=== PATIENT | female | born 1940 | race African-American/Black ===

== ENCOUNTER 2018-04-12 08:40 | Emergency (ER) | payer MEDICARE ==
[2018-04-12] MEDS ORDERED: HYDROcodone/Acetaminophen 5/325 mg Tablet ONE (09:48)
== END 2018-04-12 09:59 | disposition home or self-care (01) ==
LOC: EDBD 08:40 → ERS 08:40
DX: M10.9 Gout, unspecified (principal); I10 Essential (primary) hypertension; Z79.899 Other long term (current) drug therapy
CPT/HCPCS: 99283

== ENCOUNTER 2018-04-14 20:29 | Emergency (ER) | payer MEDICARE ==
[2018-04-14] MEDS ORDERED: Famotidine 20 MG TAB ONE (20:51)
[2018-04-14] MEDS ORDERED: Dexamethasone 4 mg/ml Vial ONE (20:51)
[2018-04-14] MEDS ORDERED: diphenhydrAMINE 25 MG CAP ONE (20:51)
[2018-04-14] MEDS ORDERED: diphenhydrAMINE 25 MG CAP PO SCH (21:00)
== END 2018-04-14 21:48 | disposition home or self-care (01) ==
LOC: ERS 20:29
DX: T78.40XA Allergy, unspecified, initial encounter (principal); I10 Essential (primary) hypertension; M10.9 Gout, unspecified; Z79.899 Other long term (current) drug therapy
CPT/HCPCS: 99283; J1100

== ENCOUNTER 2018-10-22 09:29 | Emergency (ER) | payer MEDICARE, OTHER ==
[2018-10-22] MEDS ORDERED: HYDROcodone/Acetaminophen 5/325 mg Tablet ONE (11:04)
== END 2018-10-22 10:49 | disposition home or self-care (01) ==
LOC: ERS 09:29 → EDBD 09:29 → ERS 10:49
DX: M10.9 Gout, unspecified (principal); I10 Essential (primary) hypertension; Z79.899 Other long term (current) drug therapy
CPT/HCPCS: 99283

== ENCOUNTER 2018-11-05 21:06 | Observation (INO) | payer MEDICARE ==
[2018-11-05 21:33] LABS: #Basophils 0.1 thou/uL (0.0-0.2); #Eosinphils 0.3 thou/uL (0.0-0.7); #Lymphocytes 3.4 thou/uL (1.20-3.40); #Monocytes 0.9 thou/uL (0.11-0.59); #Neutrophils 4.4 thou/uL (1.40-6.50); %Basophils 1.6 % (0.0-1.0); %Lymphocytes 37.1 % (21.0-51.0); %Monocytes 10.2 % (0.0-10.0); %Neutrophils 48.2 % (42.0-75.0); Hemoglobin 11.7 g/dL (12.0-16.0); Mean Corpuscular HGB CONC 33.9 g/dL (32.0-36.0); Mean Corpuscular Hemoglobin 31.5 pg (27.0-31.0); Mean Corpuscular Volume 92.9 fL (78.0-98.0); Mean Platelet Volume 7.2 fL (7.4-10.4); Platelet Count 231 thou/uL (130-400); RBC Distribution Width 12.3 % (11.5-14.5); Red Blood Cell (RBC) Count 3.71 mill/uL (4.20-5.40)
[2018-11-05 22:01] LABS: ALT (SGPT) 14 U/L (8-55); AST (SGOT) 18 U/L (5-34); Albumin 4.5 g/dL (3.4-4.8); Alkaline Phosphatase 61 U/L (40-150); Anion Gap 13 mmol/L (10-20); BUN (Urea Nitrogen) 30 mg/dL (9.8-20.1); Bilirubin, Total 0.2 mg/dL (0.2-1.2); Calc. Creatinine Clearance 0 mL/min (70-130); Carbon Dioxide 24 mmol/L (23-31); Chloride 106 mmol/L (98-107); Estimated GFR-MDRD 42; Glucose 93 mg/dL (83-110); Potassium 3.9 mmol/L (3.5-5.1); Protein, Total 7.5 g/dL (6.0-8.3); Sodium 139 mmol/L (136-145)
--- NOTE | 2018-11-05 22:48 | CT ---
CT BRAIN: 11/05/18 HISTORY: Dizziness that stated at [address] images of the brain obtained. There is diffuse cortical atrophy. 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 Small area of hypodensity seen along the left anterior limb of the internal capsule most compatible w ith an old small area of stroke. No acute intracranial masses seen. No evidence of intracranial hemor rhages seen. IMPRESSION: No acute intracranial abnormality seen. POS: [facility]
--- NOTE | 2018-11-05 23:13 | RAD ---
AP VIEW CHEST 11/05/18 HISTORY: Dizziness. Chest pain. AP view chest is obtained on 11/05/18. Bilateral rotator cuff surgical screws in place. The lungs are well aerated. No evidence of active in trathoracic disease seen. No evidence of effusions, pneumonia or pneumothorax seen. IMPRESSION: Unremarkable AP view chest. POS: [facility]
[2018-11-06] MEDS ORDERED: Acetaminophen 325 MG TAB PO PRN (01:14)
[2018-11-06] MEDS ORDERED: Ondansetron PF 4 MG/2 ML Vial IVP PRN (01:14)
[2018-11-06] MEDS ORDERED: Ondansetron ODT 4 MG TAB SL PRN (01:14)
[2018-11-06 01:57] VITALS: BMI 40.4
[2018-11-06] MEDS ORDERED: Senokot S 8.6-50 MG TAB PO PRN (07:39)
[2018-11-06] MEDS ORDERED: Bisacodyl 10 MG SUPP PR PRN (07:39)
[2018-11-06 07:58] LABS: Anion Gap 13 mmol/L (10-20); BUN (Urea Nitrogen) 24 mg/dL (9.8-20.1); Calc. Creatinine Clearance 56 mL/min (70-130); Calcium 9.5 mg/dL (7.8-10.44); Carbon Dioxide 21 mmol/L (23-31); Chloride 109 mmol/L (98-107); Estimated GFR-MDRD 58; Glucose 97 mg/dL (83-110); Potassium 3.7 mmol/L (3.5-5.1); Sodium 139 mmol/L (136-145)
[2018-11-06] MEDS: Enoxaparin Sodium 40 MG/0.4 ML SYRINGE SC SCH (08:29)
[2018-11-06] MEDS: Bisoprolol Fumarate/HCTZ 5 mg/6.25 mg Tablet PO SCH (08:29)
--- NOTE | 2018-11-06 08:48 | HP ---
CHIEF COMPLAINT: Lightheadedness and dizziness. HISTORY OF PRESENT ILLNESS: A 78-year-old female with past medical history only significant for hypertension, gout, and decreased hearing ability for which she uses hearing aid, who presented to the emergency room last night with acute onset of lightheadedness and dizziness associated with feeling of unsteady. Symptoms initially started while the patient stood up, but resolved on sitting. She, however, had multiple other episodes even while she was sitting down or lying down, hence presentation to the emergency room. In one occasion, the patient reported chest pressure, which also resolved spontaneously. There was no history of shortness of breath, headache, nausea, vomiting, diaphoresis, or fall. Also, the patient denied change in bowel habits, change in medication, dysuria or hematuria, or focal weakness. In the emergency room, the patient was evaluated with EKG, troponin, and CT scan, which were all unremarkable. She, however, was admitted for further evaluation of chest pain and lightheadedness. Currently, the patient denied lightheadedness or dizziness. Though, she reported an episode last night when she ambulated to go to the restroom. PAST MEDICAL HISTORY: 1. Cataract. 2. Hypertension. 3. Osteoarthritis. 4. Gout. 5. Hard of hearing and uses hearing aid. PAST SURGICAL HISTORY: 1. Bilateral rotator cuff repair. 2. section. 3. Tubal ligation. FAMILY HISTORY: Significant for diabetes in 2 sisters and a son. Father may have had heart attack. SOCIAL HISTORY: The patient lives alone. She, however, is able to do things on her own. She denied smoking, alcohol, or recreational drug use. ALLERGIES: SULFA. HOME MEDICATIONS: 1. Bisoprolol/hydrochlorothiazide 5/6.25 mg p.o. daily. 2. Colchicine as needed. 3. Eye drops. REVIEW OF SYSTEMS: Twelve-point review of system performed was negative other than pertinent positives and negatives included in the history of present illness. PHYSICAL EXAMINATION: VITAL SIGNS: On presentation to the emergency room, the patient had blood pressure of 160/81, pulse of 81, respiratory rate of 20, temperature of 98.2, and SpO2 of 99 on room air. Currently vitals show blood pressure of 157/74, pulse of 78, respiratory rate of 18, SpO2 of 99 on room air, and temperature of 98.2. GENERAL: Showed ill-looking elderly female, in no obvious distress. Afebrile, anicteric, acyanotic. HEENT: Normocephalic, atraumatic. Pupils are equal and reacting to light. Oral mucosa is moist. NECK: Supple, nontender with no obvious mass. No JVD appreciated. RESPIRATORY: Good air entry bilateral with no obvious crackle or rhonchi or use of accessory muscles. CARDIOVASCULAR: Regular rhythm and rate with normal heart sounds 1 and 2. No murmur was appreciated. No obvious edema appreciated. GASTROINTESTINAL: Abdomen is obese, soft, nontender, and nondistended with normal bowel sounds. EXTREMITIES: Grossly normal looking, atraumatic with no edema, erythema, or cyanosis. Distal pulses are palpable. SKIN: Grossly normal and appropriate for age with no rash or bruises. NEUROLOGIC: Conscious and alert, oriented x3 with appropriate mental status. Cranial nerves II through XII are intact. The patient moves all extremities. The patient was able to ambulate with normal gait and there was no dizziness at this time. DIAGNOSTIC DATA: CMP showed sodium 139, potassium 3.9, chloride 106, CO2 of 24 , BUN 30, creatinine 1.45, glucose 93, calcium 10.0, total bilirubin 0.2, AST 18 ALT 14, alkaline phosphatase 61, total protein 7.5, and albumin 4.5. Serial troponin has been unremarkable with level less than 0.010. BNP is 26.8. CBC showed WBC count of 9.0, hemoglobin 11.7, and platelet of 231. EKG showed normal sinus rhythm with rate of 85. No ischemic changes were noted. Chest x-ray showed well-aerated lungs with no evidence of acute intrathoracic pathology. CT scan of the brain showed no acute intracranial abnormality. However, small area of hypodensity seen along the left anterior limb of the internal capsule was seen and this is thought to be most compatible with an old small area of stroke. ASSESSMENT AND PLAN: 1. Acute onset of lightheadedness and dizziness: This patient with hearing defect (hard of hearing), who uses hearing aid and is at increased risk for vestibular disturbance. Symptoms were said to be episodic and has spontaneously resolved at this time. There was no associated nystagmus as per ER note. Acute cerebrovascular accident is unlikely since the symptoms has resolved at this time but Transient ischemic attack is a possibility. However, this seems most likely to be benign positional vertigo. The patient resolve spontaneously. We, however, check orthostatic vitals to rule out orthostatic dizziness. 2. Transient chest pain: The patient is currently chest pain free. Serial troponin and EKG were unremarkable. No further evaluation is indicated at this time. 3. Chronic kidney disease with possible reversible component: The patient had a creatinine of 1.4, which is relatively higher than baseline. The patient had a creatinine of 1.1 in November 2017. We will get repeat BMP. 4. Hypertension: We will check orthostatic vitals and this patient is not orthostatic. We will restart usual home medications of bisoprolol and low-dose hydrochlorothiazide. 5. Gout: No acute issues. We will start colchicine if needed. 6. Diet: The patient will be started on heart healthy diet. 7. Deep vein thrombosis prophylaxis with Lovenox. 8. Ethics: Full code. Daughter is the surrogate decision maker. 9. Disposition: We will monitor the patient closely and if she remains stable without another episode of vertigo and lightheadedness, we could consider discharging the patient. Job ID: [id number] [facility]
[2018-11-07] MEDS: Bisoprolol Fumarate/HCTZ 5 mg/6.25 mg Tablet PO SCH (08:15)
[2018-11-07] MEDS: Enoxaparin Sodium 40 MG/0.4 ML SYRINGE SC SCH (08:16)
[2018-11-07 09:08] LABS: Cardiac Risk 4.6 (Less than 4.5)
[2018-11-07 11:54] LABS: Bilirubin Negative (Negative); Blood, Urine Negative (Negative); Clarity CLOUDY (Clear); Glucose, Urine (Dipstick) Negative (Negative); Leukocyte Moderate (Negative); Nitrite Positive (Negative); Protein, Urine (Dipstick) Negative (Neg-Trace); Specific Gravity, Urine 1.012 (1.002-1.036); Urobilinogen 0.2 mg/dL (0.2-1.0)
[2018-11-07 11:55] VITALS: BP 133/66
[2018-11-07 11:59] LABS: Bacteria/HPF 2+ HPF (None Seen); Hyaline Casts/LPF 0-3 HYALINE CAST LPF (0-3 Hyaline); Pathc Cast-AUWi Flag 0.14 (0-2.49); RBC/HPF 0-3 HPF (0-3); WBC/HPF 21-50 HPF (0-3)
[2018-11-07] MEDS ORDERED: Sodium Chloride 0.9% 10 ML ONE (13:31)
[2018-11-07 14:04] VITALS: TEMP 97.8
--- NOTE | 2018-11-08 04:07 | DIS ---
DATE OF ADMISSION: 11/06/2018 DATE OF DISCHARGE: 11/07/2018 CONDITION AT THE TIME OF DISCHARGE: Stable and improved. PRIMARY CARE PHYSICIAN: Dirk Reynoso MD DISCHARGE DIAGNOSES: 1. Dizziness, likely secondary to urinary tract infection. 2. History of hypertension, congestive heart failure, dyslipidemia, and gout. DISCHARGE MEDICATIONS: Discharge medication remains the same as admission medication, which includes; 1. Bisoprolol/hydrochlorothiazide 5/6.25 mg daily. 2. Colchicine as needed. New medication: Levofloxacin 500 mg p.o. daily for 5 days. HISTORY OF PRESENTING ILLNESS: Ms. Hogan is a very pleasant 78-year-old female with past medical history of hypertension and dyslipidemia, who presented to the emergency room with complaints of dizziness. She feels that she has some fullness in the inner ear. Upon presentation, her vital signs were stable and labs were unremarkable. Cardiac enzymes were normal. EKG and chest x-ray were within normal limit. CT scan of the brain was unremarkable. She was admitted for further workup and monitoring. Please see admission history and physical for further details. HOSPITAL COURSE: Orthostatics were negative. Serial cardiac enzymes were negative. Urine was checked and came back positive, so she was started on IV Levaquin and was discharged on oral Levaquin. Urine culture results are pending at this time. She is being referred to outpatient dizzy and balance center. She is also being referred to get outpatient stress test and follow up the results with primary care physician. Her last stress test was 10 years ago. At this time, the likelihood of acute coronary syndrome is negligible. She is currently asymptomatic and her dizziness has almost resolved. She was seen and examined prior to discharge. PHYSICAL EXAMINATION: VITAL SIGNS: This morning vital signs; blood pressure 148/81 with a pulse of 81, no acute distress. CHEST: Clear to auscultation bilaterally. HEART: Rate and rhythm, regular. DISCHARGE PLAN: Discharge plan was discussed with the patient and her daughter in the room and they verbalized understanding. Job ID: [id number]
== END 2018-11-07 15:21 | disposition home or self-care (01) ==
LOC: ERS 21:06 → 2SW 11-06 00:11
PROVIDERS: ADMIT Hospitalist; ATTEND Hospitalist
DX: R42 Dizziness and giddiness (principal); I13.0 Hypertensive heart and chronic kidney disease with heart failure and stage 1 through stage 4 chronic kidney disease, or unspecified chronic kidney disease; N18.9 Chronic kidney disease, unspecified; I50.9 Heart failure, unspecified; E78.5 Hyperlipidemia, unspecified; M10.9 Gout, unspecified; H26.9 Unspecified cataract; M19.90 Unspecified osteoarthritis, unspecified site; H91.90 Unspecified hearing loss, unspecified ear; Z97.4 Presence of external hearing-aid; Z98.51 Tubal ligation status; Z88.2 Allergy status to sulfonamides; Z79.2 Long term (current) use of antibiotics; Z79.899 Other long term (current) drug therapy; Z98.890 Other specified postprocedural states
CPT/HCPCS: 70450; 71045; 80048; 80053; 80061; 81001; 83880; 84443; 84484 ×3; 85025; 93005; 96365; 96372 ×2; 97116; 97139; 99285; G0378 ×2; 36415; 96360; J1650; J1956

== ENCOUNTER 2019-01-10 07:32 | Emergency (ER) | payer MEDICARE ==
--- NOTE | 2019-01-10 08:26 | RAD ---
XR Lumbar Spine 2 Or 3 View: 01/10/2019 8:01 AM CLINICAL INDICATION: Pain COMPARISON: None. FINDINGS: Fracture:No fracture. Arthropathy:There is moderate multilevel degenerative change throughout the lumbar spine including en dplate degeneration and multilevel facet osteoarthritis. There is grade 1 spondylolisthesis at L3-4 and grade 1-2 spondylolisthesis at L4-5. Left convexity curvature of lumbar spine is present. Incidental findings:Focal calcification overlies the left hemipelvis, which could relate to calcified fibroid although is nonspecific. Vascular calcification. IMPRESSION: 1. Multilevel degenerative change of lumbar spine with multilevel listheses as above. 2. Pelvic calcification as above.
== END 2019-01-10 08:47 | disposition home or self-care (01) ==
LOC: ERS 07:32
DX: M54.41 Lumbago with sciatica, right side (principal); I10 Essential (primary) hypertension; M10.9 Gout, unspecified
CPT/HCPCS: 72100

== ENCOUNTER 2019-01-21 18:22 | Emergency (ER) | payer MEDICARE, SELFPAY ==
[2019-01-21] MEDS ORDERED: HYDROcodone/Acetaminophen 10/325 mg Tablet ONE (19:25)
[2019-01-21] MEDS ORDERED: Cyclobenzaprine 10 MG TAB ONE (19:26)
== END 2019-01-21 19:31 | disposition home or self-care (01) ==
LOC: ERS 18:22
DX: M54.5 Low back pain (principal); M10.9 Gout, unspecified; I10 Essential (primary) hypertension; K21.9 Gastro-esophageal reflux disease without esophagitis; Z79.899 Other long term (current) drug therapy; Z79.891 Long term (current) use of opiate analgesic
CPT/HCPCS: 99283

== ENCOUNTER 2019-06-26 19:54 | Emergency (ER) | payer MEDICARE ==
--- NOTE | 2019-06-26 20:21 | RAD ---
EXAM: Chest 2 views: HISTORY: Cough and congestion COMPARISON: 10/09/15 FINDINGS: There is a normal-sized cardiomediastinal silhouette. There is no evidence of consolidation, mass, or pleural effusion. Degenerative changes are seen in the spine. Postsurgical changes are seen in the shoulders. IMPRESSION: No evidence of acute cardiopulmonary disease
== END 2019-06-26 21:30 | disposition home or self-care (01) ==
LOC: ERS 19:54
DX: R09.81 Nasal congestion (principal); I10 Essential (primary) hypertension; M10.9 Gout, unspecified; K21.9 Gastro-esophageal reflux disease without esophagitis; Z79.899 Other long term (current) drug therapy; Z79.82 Long term (current) use of aspirin
CPT/HCPCS: 71046; 87804

== ENCOUNTER 2020-11-09 23:52 | Emergency (ER) | payer MEDICARE ==
[2020-11-10 01:00] LABS: Bacteria/HPF None Seen HPF (None Seen); Bilirubin Negative (Negative); Blood, Urine Negative (Negative); Clarity Clear (Clear); Glucose, Urine (Dipstick) Normal (Negative); Ketone, Urine Negative (Negative); Leukocyte 75 Leu/uL (Negative); Nitrite Negative (Negative); Protein, Urine (Dipstick) 20 mg/dL (Neg-Trace); RBC/HPF 0-3 HPF (0-3); Specific Gravity, Urine 1.018 (1.002-1.036); Squamous Epithelial 21-50 HPF (0-3); Urobilinogen Normal mg/dL (Less than 2); WBC/HPF 0-3 HPF (0-3); pH, Urine 5.5 (5.0-9.0)
[2020-11-10 01:09] LABS: #Basophils 0.1 thou/uL (0.0-0.2); #Eosinphils 0.1 thou/uL (0.0-0.7); #Lymphocytes 1.6 thou/uL (1.20-3.40); #Monocytes 0.8 thou/uL (0.11-0.59); #Neutrophils 4.4 thou/uL (1.40-6.50); %Eosinophils 1.7 % (0.0-10.0); %Lymphocytes 23.1 % (21.0-51.0); %Monocytes 11.1 % (0.0-10.0); %Neutrophils 63.1 % (42.0-75.0); Hemoglobin 11.6 g/dL (12.0-16.0); Mean Corpuscular HGB CONC 37.6 g/dL (32.0-36.0); Mean Corpuscular Hemoglobin 35.9 pg (27.0-31.0); Mean Corpuscular Volume 95.4 fL (78.0-98.0); Mean Platelet Volume 7.7 fL (7.4-10.4); Platelet Count 261 thou/uL (130-400); RBC Distribution Width 12.9 % (11.5-14.5); Red Blood Cell (RBC) Count 3.25 mill/uL (4.20-5.40)
[2020-11-10 01:24] LABS: ALT (SGPT) 14 U/L (8-55); AST (SGOT) 18 U/L (5-34); Albumin 4.1 g/dL (3.4-4.8); Alkaline Phosphatase 52 U/L (40-110); Anion Gap 17 mmol/L (10-20); BUN (Urea Nitrogen) 21 mg/dL (9.8-20.1); Bilirubin, Total 0.3 mg/dL (0.2-1.2); Calc. Creatinine Clearance 0 mL/min (70-130); Calcium 9.6 mg/dL (7.8-10.44); Carbon Dioxide 19 mmol/L (23-31); Chloride 103 mmol/L (98-107); Globulin 3.1 g/dL (2.4-3.5); Glucose 102 mg/dL (83-110); Potassium 3.7 mmol/L (3.5-5.1); Protein, Total 7.2 g/dL (5.8-8.1); Sodium 135 mmol/L (136-145)
== END 2020-11-10 01:48 | disposition home or self-care (01) ==
LOC: ERS 23:52
DX: R50.9 Fever, unspecified (principal); Z20.822 Contact with and (suspected) exposure to COVID-19; I10 Essential (primary) hypertension; K21.9 Gastro-esophageal reflux disease without esophagitis; M10.9 Gout, unspecified
CPT/HCPCS: 36415; 71045; 80053; 81003; 81015; 84484; 85025; 87086; 93005

== ENCOUNTER 2021-02-02 08:28 | Emergency (ER) | payer MEDICARE, OTHER ==
[2021-02-02 09:10] LABS: #Basophils 0.1 thou/uL (0.0-0.2); #Eosinphils 0.2 thou/uL (0.0-0.7); #Lymphocytes 1.9 thou/uL (1.20-3.40); #Monocytes 0.6 thou/uL (0.11-0.59); #Neutrophils 4.1 thou/uL (1.40-6.50); %Basophils 1.9 % (0.0-1.0); %Eosinophils 3.4 % (0.0-10.0); %Lymphocytes 27.1 % (21.0-51.0); %Monocytes 8.6 % (0.0-10.0); Hemoglobin 12.9 g/dL (12.0-16.0); Mean Corpuscular HGB CONC 34.8 g/dL (32.0-36.0); Mean Corpuscular Hemoglobin 33.1 pg (27.0-31.0); Mean Corpuscular Volume 95.3 fL (78.0-98.0); Mean Platelet Volume 7.4 fL (7.4-10.4); Platelet Count 229 thou/uL (130-400); RBC Distribution Width 12.4 % (11.5-14.5)
[2021-02-02 09:27] LABS: ALT (SGPT) 14 U/L (8-55); AST (SGOT) 18 U/L (5-34); Albumin 4.3 g/dL (3.4-4.8); Alkaline Phosphatase 57 U/L (40-110); Anion Gap 13 mmol/L (10-20); BUN (Urea Nitrogen) 21 mg/dL (9.8-20.1); Bilirubin, Total 0.5 mg/dL (0.2-1.2); Calc. Creatinine Clearance 0 mL/min (70-130); Calcium 10.4 mg/dL (7.8-10.44); Carbon Dioxide 24 mmol/L (23-31); Chloride 106 mmol/L (98-107); Globulin 3.4 g/dL (2.4-3.5); Glucose 127 mg/dL (83-110); Potassium 3.9 mmol/L (3.5-5.1); Protein, Total 7.7 g/dL (5.8-8.1); Sodium 139 mmol/L (136-145)
== END 2021-02-02 10:50 | disposition home or self-care (01) ==
LOC: ERS 08:28
DX: M25.512 Pain in left shoulder (principal); Z79.899 Other long term (current) drug therapy; Z79.82 Long term (current) use of aspirin; I10 Essential (primary) hypertension; M10.9 Gout, unspecified; K21.9 Gastro-esophageal reflux disease without esophagitis
CPT/HCPCS: 72125; 80053; 84484; 85025; 93005

== ENCOUNTER 2021-06-04 20:05 | Observation (INO) | payer MEDICARE ==
[2021-06-04 20:32] LABS: #Basophils 0.1 thou/uL (0.0-0.2); #Eosinphils 0.4 thou/uL (0.0-0.7); #Lymphocytes 3.3 thou/uL (1.20-3.40); #Monocytes 0.9 thou/uL (0.11-0.59); #Neutrophils 3.9 thou/uL (1.40-6.50); %Basophils 0.9 % (0.0-1.0); %Eosinophils 4.5 % (0.0-10.0); %Lymphocytes 38.4 % (21.0-51.0); %Monocytes 10.4 % (0.0-10.0); %Neutrophils 45.9 % (42.0-75.0); Hemoglobin 11.8 g/dL (12.0-16.0); Mean Corpuscular HGB CONC 34.8 g/dL (32.0-36.0); Mean Corpuscular Hemoglobin 33.2 pg (27.0-31.0); Mean Corpuscular Volume 95.4 fL (78.0-98.0); Mean Platelet Volume 7.5 fL (7.4-10.4); Platelet Count 217 thou/uL (130-400); RBC Distribution Width 12.5 % (11.5-14.5); Red Blood Cell (RBC) Count 3.57 mill/uL (4.20-5.40); White Blood Cell (WBC) Count 8.5 thou/uL (4.8-10.8)
[2021-06-04] MEDS ORDERED: Aspirin Chewable 81 MG TAB ONE (20:51)
[2021-06-04 20:52] LABS: ALT (SGPT) 14 U/L (8-55); AST (SGOT) 20 U/L (5-34); Albumin 4.1 g/dL (3.4-4.8); Alkaline Phosphatase 52 U/L (40-110); Anion Gap 14 mmol/L (10-20); BUN (Urea Nitrogen) 25 mg/dL (9.8-20.1); Bilirubin, Total 0.3 mg/dL (0.2-1.2); Calc. Creatinine Clearance 0 mL/min (70-130); Calcium 10.7 mg/dL (7.8-10.44); Carbon Dioxide 23 mmol/L (23-31); Globulin 3.2 g/dL (2.4-3.5); Glucose 106 mg/dL (83-110); Protein, Total 7.3 g/dL (5.8-8.1); Sodium 137 mmol/L (136-145)
[2021-06-04 20:56] LABS: Chloride 104 mmol/L (98-107)
[2021-06-04 21:24] LABS: Magnesium 1.6 mg/dL (1.6-2.6)
[2021-06-04] MEDS ORDERED: Ibuprofen 800 MG TAB ONE (22:29)
[2021-06-04] MEDS ORDERED: Acetaminophen 500 MG TAB ONE (22:29)
[2021-06-05] MEDS ORDERED: Acetaminophen 325 MG TAB PO PRN (00:08)
[2021-06-05] MEDS ORDERED: Ondansetron PF 4 MG/2 ML Vial IVP PRN (00:08)
[2021-06-05] MEDS ORDERED: Nitroglycerin 0.4 MG TAB (25 Tab Bottle) SL PRN (00:18)
[2021-06-05] MEDS ORDERED: Sodium Chloride 0.9% 1,000 ML IV SCH (00:30)
[2021-06-05 01:27] LABS: Bilirubin Negative (Negative); Blood, Urine Negative (Negative); Clarity Clear (Clear); Glucose, Urine (Dipstick) Normal (Negative); Ketone, Urine Negative (Negative); Leukocyte Negative Leu/uL (Negative); Nitrite Negative (Negative); Protein, Urine (Dipstick) Negative (Neg-Trace); Specific Gravity, Urine 1.006 (1.002-1.036); Urobilinogen Normal mg/dL (Less than 2); pH, Urine 5.5 (5.0-9.0)
[2021-06-05 03:20] VITALS: BMI 33.5
[2021-06-05 04:21] LABS: SARS-CoV-2 NAA Rapid Test Not Detected (NotDetected)
[2021-06-05 05:16] LABS: #Basophils 0.1 thou/uL (0.0-0.2); #Eosinphils 0.4 thou/uL (0.0-0.7); #Lymphocytes 2.8 thou/uL (1.20-3.40); #Monocytes 0.7 thou/uL (0.11-0.59); #Neutrophils 3.3 thou/uL (1.40-6.50); %Basophils 1.2 % (0.0-1.0); %Eosinophils 4.9 % (0.0-10.0); %Lymphocytes 39.2 % (21.0-51.0); %Monocytes 9.3 % (0.0-10.0); %Neutrophils 45.4 % (42.0-75.0); Hemoglobin 11.7 g/dL (12.0-16.0); Mean Corpuscular HGB CONC 32.9 g/dL (32.0-36.0); Mean Corpuscular Hemoglobin 31.1 pg (27.0-31.0); Mean Corpuscular Volume 94.5 fL (78.0-98.0); Mean Platelet Volume 7.7 fL (7.4-10.4); Platelet Count 202 thou/uL (130-400); RBC Distribution Width 12.6 % (11.5-14.5); Red Blood Cell (RBC) Count 3.77 mill/uL (4.20-5.40); White Blood Cell (WBC) Count 7.2 thou/uL (4.8-10.8)
[2021-06-05 05:34] LABS: Anion Gap 15 mmol/L (10-20); BUN (Urea Nitrogen) 21 mg/dL (9.8-20.1); Calc. Creatinine Clearance 49 mL/min (70-130); Calcium 10.7 mg/dL (7.8-10.44); Carbon Dioxide 22 mmol/L (23-31); Chloride 105 mmol/L (98-107); Glucose 109 mg/dL (83-110); Potassium 3.5 mmol/L (3.5-5.1); Sodium 138 mmol/L (136-145)
[2021-06-05] MEDS ORDERED: Aspirin Chewable 81 MG TAB PO SCH (09:00)
[2021-06-05] MEDS ORDERED: Heparin 10,000 UNITS/ 10 ML VIAL ONE (09:25)
[2021-06-05] MEDS ORDERED: Aspirin Chewable 81 MG TAB ONE (13:02)
[2021-06-05 13:30] VITALS: BP 149/77; TEMP 98.1
== END 2021-06-05 15:01 | disposition home or self-care (01) ==
LOC: ERS 20:05 → ERHOLD 21:36 → 2NO 06-05 14:14 → ERHOLD 06-05 14:18
PROVIDERS: ADMIT Student in an Organized Health Care Education/Training Program; ATTEND Hospitalist
DX: R07.9 Chest pain, unspecified (principal); N17.9 Acute kidney failure, unspecified; I10 Essential (primary) hypertension; M10.9 Gout, unspecified; K21.9 Gastro-esophageal reflux disease without esophagitis; Z20.822 Contact with and (suspected) exposure to COVID-19; Z79.899 Other long term (current) drug therapy; Z88.2 Allergy status to sulfonamides
CPT/HCPCS: 71045; 78452; 80048; 80053; 81003; 83735; 83880; 84484 ×3; 84550; 85025 ×2; 87086; 90732; 93005; 93017; 99285; A9500; G0009; G0378 ×2; U0002; 36415; 90471; J1644; J7050

== ENCOUNTER 2021-09-11 11:22 | Outpatient (CLI) | payer MEDICARE | END 2021-09-11 11:23 | disposition home or self-care (01) | LOC: DTY/OP 11:22 | PROVIDERS: ATTEND Family Medicine | DX: E11.9 Type 2 diabetes mellitus without complications (principal) | CPT/HCPCS: 97802 ==

== ENCOUNTER 2024-04-06 10:08 | Emergency (ER) | payer MEDICARE, OTHER | END 2024-04-06 12:06 | disposition home or self-care (01) | LOC: ERS 10:08 | DX: S16.1XXA Strain of muscle, fascia and tendon at neck level, initial encounter (principal); I10 Essential (primary) hypertension; E11.9 Type 2 diabetes mellitus without complications; M19.90 Unspecified osteoarthritis, unspecified site; M10.9 Gout, unspecified; X58.XXXA Exposure to other specified factors, initial encounter; Z55.0 Illiteracy and low-level literacy; Z79.82 Long term (current) use of aspirin; Z79.899 Other long term (current) drug therapy ==

== ENCOUNTER 2024-06-16 07:08 | Emergency (ER) | payer OTHER ==
[2024-06-16 08:07] LABS: Bacteria/HPF 2+ HPF (None Seen); Bilirubin Negative (Negative); Blood, Urine 1+ (Negative); CAUTI Indications for Culture Dysuria,urgency,freq; Clarity Clear (Clear); Glucose, Urine (Dipstick) Normal (Negative); Ketone, Urine Negative (Negative); Leukocyte 500 Leu/uL (Negative); Nitrite Negative (Negative); Protein, Urine (Dipstick) Negative (Neg-Trace); Specific Gravity, Urine 1.003 (1.002-1.036); Squamous Epithelial 0-3 HPF (0-3); Urobilinogen Normal mg/dL (Less than 2); WBC/HPF Greater than 50 HPF (0-3)
[2024-06-16 08:13] LABS: Urine Culture Reflex Yes Yes
[2024-06-16 09:13] LABS: Anion Gap 12 mmol/L (10-20); BUN (Urea Nitrogen) 31 mg/dL (9.8-20.1); Calc. Creatinine Clearance 0 mL/min (70-130); Calcium 10.2 mg/dL (7.8-10.44); Carbon Dioxide 25 mmol/L (23-31); Chloride 107 mmol/L (98-107); Estimated GFR 34; Glucose 114 mg/dL (83-110); Potassium 3.6 mmol/L (3.5-5.1); Sodium 140 mmol/L (136-145)
== END 2024-06-16 09:45 | disposition home or self-care (01) ==
LOC: ERS 07:08
DX: R82.998 Other abnormal findings in urine (principal); I12.9 Hypertensive chronic kidney disease with stage 1 through stage 4 chronic kidney disease, or unspecified chronic kidney disease; E11.22 Type 2 diabetes mellitus with diabetic chronic kidney disease; N18.9 Chronic kidney disease, unspecified
CPT/HCPCS: 36415; 80048; 81001; 87077; 87086; 87186; 99283

== ENCOUNTER 2024-10-18 15:14 | Emergency (ER) | payer OTHER ==
[2024-10-18] MEDS ORDERED: Ibuprofen 200 MG TAB ONE (16:32)
[2024-10-18] MEDS ORDERED: Lidocaine 4% Patch ONE (16:33)
== END 2024-10-18 16:45 | disposition home or self-care (01) ==
LOC: ERS 15:14
DX: M79.602 Pain in left arm (principal); T50.Z95A Adverse effect of other vaccines and biological substances, initial encounter; M62.89 Other specified disorders of muscle; I10 Essential (primary) hypertension; E11.9 Type 2 diabetes mellitus without complications
CPT/HCPCS: 99282

== ENCOUNTER 2025-08-04 14:34 | Emergency (ER) | payer MEDICARE, OTHER ==
[2025-08-04] MEDS ORDERED: Nitroglycerin 2% Ointment 1 INCH/1 GM Packet ONE (15:01)
[2025-08-04] MEDS ORDERED: Aspirin Chewable 81 MG TAB ONE (15:01)
[2025-08-04 15:44] LABS: #Basophils 0.03 10x3/uL (0.0-0.2); #Eosinophils 0.23 10x3/uL (0.0-0.7); #Monocytes 0.83 10x3/uL (0.11-0.59); #Neutrophils 3.54 10x3/uL (1.40-6.50); %Basophils 0.4 % (0.0-1.0); %Eosinophils 3.2 % (0.0-10.0); %Lymphocytes 35.1 % (21.0-51.0); %Monocytes 11.6 % (0.0-10.0); %Neutrophils 49.4 % (42.0-75.0); Hematocrit 30.4 % (36.0-47.0); Hemoglobin 10.3 g/dL (12.0-16.0); Mean Corpuscular Hemoglobin 30.6 pg (27.0-31.0); Mean Corpuscular Volume 90.2 fL (78.0-98.0); Platelet Count 212 10x3/uL (130-400); Red Blood Cell (RBC) Count 3.37 mill/uL (4.20-5.40); White Blood Cell (WBC) Count 7.17 10x3/uL (4.8-10.8)
[2025-08-04 16:09] LABS: ALT (SGPT) 14 U/L (Less than 34); AST (SGOT) 34 U/L (11-34); Albumin 4.1 g/dL (3.1-4.5); Alkaline Phosphatase 44 U/L (40-110); Anion Gap 16 mmol/L (10-20); BUN (Urea Nitrogen) 39 mg/dL (9.8-20.1); Bilirubin, Total 0.4 mg/dL (0.3-1.2); Calc. Creatinine Clearance 0 mL/min (70-130); Calcium 10.3 mg/dL (7.8-10.44); Carbon Dioxide 19 mmol/L (23-31); Chloride 107 mmol/L (98-107); Globulin 3.2 g/dL (2.4-3.5); Glucose 90 mg/dL (83-110); Potassium 4.6 mmol/L (3.5-5.1); Sodium 137 mmol/L (136-145)
== END 2025-08-04 17:01 | disposition home or self-care (01) ==
LOC: ERS 14:34
DX: R07.2 Precordial pain (principal); E11.9 Type 2 diabetes mellitus without complications; I10 Essential (primary) hypertension
CPT/HCPCS: 71045; 80053; 83880; 84484; 85025; 93005; 94760